=== PATIENT | female | born 1970 | race Caucasian/White ===

== ENCOUNTER 2016-08-05 09:33 | Outpatient (CLI) ==
[2013-03-26 13:17] VITALS: BMI 22.6
--- NOTE | 2016-08-05 11:00 | MAMMO ---
EXAM: Digital right diagnostic mammogram HISTORY: Right axillary soft tissue seen on previous screening mammogram COMPARISON: Screening mammogram 06/23/2016 and 03/15/2015 FINDINGS: XCCL, MLO and ML views of the breast were performed digitally and demonstrate heterogeneo usly dense breast density (50 - 75%). Breast density limits evaluation of subtle nodules. The right axillary soft tissue is not redemonstrated on any of the provided views. IMPRESSION: Right axillary soft tissue seen on prior examination is not redemonstrated on mammogram and is likely artifact/summation of shadows from prior exam. RECOMMENDATION: Return to annual screening mammogram BIRADS category II: Benign findings
== END 2016-08-05 09:34 | disposition home or self-care (01) ==
LOC: RAD 09:33
PROVIDERS: ATTEND Internal Medicine
DX: R92.8 Other abnormal and inconclusive findings on diagnostic imaging of breast (principal)

== ENCOUNTER 2017-03-18 10:19 | Outpatient (CLI) ==
[2013-03-26 13:17] VITALS: BMI 22.6
[2017-03-18 11:05] LABS: BILIRUBIN,URINE Negative (NEGATIVE); KETONES,URINE Negative (NEGATIVE); LEUKOCYTE ESTERASE ,URINE Negative (NEGATIVE); NITRITE,URINE Negative (NEGATIVE); PH,URINE 5.5 (5-9); PROTEIN,URINE Negative (NEGATIVE); URINE, BLOOD Trace-intact (NEGATIVE)
[2017-03-18 11:30] LABS: ADD URINE MICROSCOPIC YES
== END 2017-03-18 10:20 | disposition home or self-care (01) ==
LOC: LAB 10:19
PROVIDERS: ATTEND Internal Medicine
DX: R30.0 Dysuria (principal); N89.8 Other specified noninflammatory disorders of vagina
CPT/HCPCS: 81001; 87086; 87800

== ENCOUNTER 2017-07-28 11:02 | Outpatient (CLI) | payer OTHER ==
[2013-03-26 13:17] VITALS: BMI 22.6
--- NOTE | 2017-07-28 11:53 | MAMMO ---
EXAM: Bilateral digital screening mammogram (2-D and 3-D) History: Screening Comparison: Bilateral mammogram 06/23/2016 Findings: MLO and CC views of bilateral breasts demonstrate heterogeneously dense breast parenchyma which can obscure small lesions. CAD was reviewed by the radiologist. Tomosynthesis was performed. There are no dominant masses, no suspicious microcalcifications and no architectural distortions Impression: Stable negative mammogram. Recommend followup routine screening mammography in 1 year. BIRADS 1
--- NOTE | 2017-07-28 16:09 | MRI ---
EXAM: MRI bilateral lower leg without contrast. HISTORY: Leg pain. Bilateral ashraf pain radiating down to ankles. No lower extremity surgery reporte d. TECHNIQUE: Using a coil on a high field strength magnet multiplanar multisequence large field of vie w imaging obtained through the right and left tibia/fibula without intravenous gadolinium contrast. Note this constitutes incomplete MR evaluation of the bilateral knees and bilateral hind feet.. FINDINGS: I do not have prior plain film radiographs of the right or left tibia/fibula available for comparison at the time of this dictation. Bone marrow signal intensity of the right tibia/fibular shows no acute fracture or stress fracture, s tress fracture or discrete lytic or blastic lesion. Small focus of subchondral edema/remodeling over the lateral corner of the left talar dome. This measures approximate 8 mm. No loose/unstable fragment suspected. The muscle bulk of the anterior and posterior compartments of both lower extremities below the knee shows no focal atrophy or muscle fascial herniation. There is some minimal increased intramuscular T 2 signal intensity to the more distal right and left medial heads of the gastrocnemius. Some less ex tensive involvement of the more distal lateral heads of the gastrocnemius muscle. No deep fascial/de ep inter muscular fluid collections identified.. IMPRESSION: No acute fracture/stress fracture right or left tibia/fibula. Some minimal increased intramuscular T2 signal intensity along the more distal right and left medial heads of the gastrocnemius with less extensive involvement of the more distal right and left lateral heads of the gastrocnemius muscle.. This may reflect some low grade strain. Tiny osteochondral lesion lateral corner of the left talar dome.
== END 2017-07-28 11:03 | disposition home or self-care (01) ==
LOC: RAD 11:02
PROVIDERS: ATTEND Internal Medicine
DX: Z12.31 Encounter for screening mammogram for malignant neoplasm of breast (principal)
CPT/HCPCS: 77067

== ENCOUNTER 2017-08-20 11:00 | Outpatient (CLI) ==
[2013-03-26 13:17] VITALS: BMI 22.6
== END 2017-08-20 11:01 | disposition home or self-care (01) ==
LOC: LAB 11:00
PROVIDERS: ATTEND Internal Medicine
DX: K12.1 Other forms of stomatitis (principal)
CPT/HCPCS: 36415; 86695; 86696; 87252

== ENCOUNTER 2018-05-11 09:26 | Emergency (ER) | payer OTHER ==
[2018-05-11 09:37] VITALS: BP 141/80; TEMP 98.3; BMI 23.1
[2018-05-11] MEDS ORDERED: ROCEPHIN IM STA (10:12)
[2018-05-11] MEDS ORDERED: LIDOCAINE HCL 1% SDV IM STA (10:12)
[2018-05-11] MEDS ORDERED: ZOFRAN 4 MG/2 ML IM STA (10:12)
[2018-05-11] MEDS ORDERED: MORPHINE 2 MG/ML SYRINGE IM STA (10:12)
--- NOTE | 2018-05-11 10:15 | ED.PDOC ---
General ED Provider: Dr. THOMAS HERNANDEZ Chief Complaint: Tooth Problem Stated Complaint: dental abscess Time Seen by Physician: 09:30 (see photos, JACKIE AND ARSALAN PRESENT AT ALL TIMES ) Mode of Arrival: Walk-In Information Source: Patient Exam Limitations: No limitations Primary Care Provider: SIDRA KESY Nursing and Triage Documentation Reviewed and Agree: Yes Does patient meet sepsis criteria?: No System Inflammatory Response Syndrome: Not Applicable (see photos) Sepsis Protocol: For patient's 13 years and over: Temp is 96.8 and below OR 101 and greater Pulse >90 BPM Resp >20/minute Acutely Altered Mental Status Are patient's symptoms suggestive of a new infection, such as: -Pneumonia -Skin, Soft Tissue -Endocarditis -UTI -Bone, Joint Infection -Implantable Device -Acute Abdominal Infection -Wound Infection -Meningitis -Blood Stream Catheter Infection -Unknown EENT Complaint Exam - Dental/Oral Complaint/Exam Mechanism of Injury: No known trauma Onset/Duration: 3 days Symptoms Are: Still present Timing: Constant Initial Severity: Moderate Current Severity: Moderate Character: Reports: Aching, Throbbing Aggravating: Reports: None Alleviating: Reports: None Associated Signs and Symptoms: Reports: Swelling (jaw ). Denies: Discharge, Fever, Foul odor, Foul taste in mouth Related History: Reports: Similar episode Cardiac Risk Factors: Reports: None Dental/Oral Surgical History: Reports: None Tooth Findings: Present: Gross caries, Abcess Cervical Lymphadenopathy Present: No Facial Swelling Present: Yes (see photos) Bleeding Present: No Oropharynx Findings: Absent: Clots, Active bleeding Septal Hematoma: No Foreign Body Present: No Dysphagia Present: No Drooling Present: No Asymmetrical Tonsillar Swelling Present: No Uvula Midline: Yes Maylin-tonsillar Fluctuence: No Trismus Present: No Palatal Petechiae Present: No Scarlatinaform Rash Present: No Lesions: Absent: Lip, Gums, Tongue, Buccal Mucosa, Pharynx Exanthem: Absent: Lip, Gums, Tongue, Buccal Mucosa, Pharynx Vesicles: Absent: Lip, Gums, Tongue, Buccal Mucosa, Pharynx Teeth Picture: 1 - decay Differential Diagnoses: Dental Caries, Other (abscess) Review of Systems - Review Of Systems Constitutional: Reports: No symptoms Eyes: Reports: No symptoms Ears, Nose, Mouth, Throat: Reports: No symptoms Respiratory: Reports: No symptoms Cardiac: Reports: No symptoms GI: Reports: No symptoms : Reports: No symptoms Musculoskeletal: Reports: No symptoms Skin: Reports: No symptoms Neurological: Reports: No symptoms Endocrine: Reports: No symptoms Hematologic/Lymphatic: Reports: No symptoms All Other Systems: Reviewed and Negative Past Medical History - Past Medical History Previously Healthy: Yes Endocrine: Reports: None Cardiovascular: Reports: None Respiratory: Reports: None Hematological: Reports: None Gastrointestinal: Reports: None Genitourinary: Reports: None Neuro/Psych: Reports: None Musculoskeletal: Reports: None Cancer: Reports: None Last Menstrual Period: 2 weeks - Surgical History General Surgical History: Reports: None - Family History Family History: Reports: None - Social History Smoking Status: Never smoker Hx Substance Use: No Alcohol Screening: None Physical Exam - Physical Exam Appearance: Well-appearing, No pain distress, Well-nourished Eyes: COLLEEN, EOMI, Conjunctiva clear ENT: Ears normal, Nose normal, Oropharynx normal Respiratory: Airway patent, Breath sounds clear, Breath sounds equal, Respirations nonlabored Cardiovascular: RRR, Pulses normal, No rub, No murmur GI/: Soft, Nontender, No masses, Bowel sounds normal, No Organomegaly Musculoskeletal: Normal strength, ROM intact, No edema, No calf tenderness Skin: Warm, Dry, Normal color Neurological: Sensation intact, Motor intact, Reflexes intact, Cranial nerves intact, Alert, Oriented Psychiatric: Affect appropriate, Mood appropriate Critical Care Note - Critical Care Note Total Time (mins): 0 Course - Course Orders, Labs, Meds: Orders Category Date Time Status Ceftriaxone Sodium [Rocephin] MEDS 05/11/18 10:12 Stat 1 gm IM ONCE STA Lidocaine HCl/Pf [Lidocaine HCl 1% Sdv] MEDS 05/11/18 10:12 Stat 2.1 ml IM ONCE STA Morphine Sulfate [Morphine 2 mg/ml Syringe] MEDS 05/11/18 10:12 Stat 4 mg IM ONCE STA Ondansetron HCl/Pf [Zofran 4 mg/2 ml] MEDS 05/11/18 10:12 Stat 4 mg IM ONCE STA CT MAXILLOFACIAL W/O CONTRAST Stat RADS 05/11/18 10:13 Ordered Medications Generic Name Dose Route Start Last Admin Trade Name Shae PRN Reason Stop Dose Admin Ceftriaxone Sodium 1 gm 05/11/18 10:12 Rocephin IM 05/11/18 10:13 ONCE STA Lidocaine HCl 2.1 ml 05/11/18 10:12 Lidocaine Hcl 1% Sdv IM 05/11/18 10:13 ONCE STA Morphine Sulfate 4 mg 05/11/18 10:12 Morphine 2 Mg/Ml Syringe IM 05/11/18 10:13 ONCE STA Ondansetron HCl 4 mg 05/11/18 10:12 Zofran 4 Mg/2 Ml IM 05/11/18 10:13 ONCE STA Vital Signs: Temp Pulse Resp BP Pulse Ox 05/11/18 09:27 98.3 F 97 H 20 141/80 H 99 Departure - Departure Time of Disposition: 10:16 Disposition: HOME SELF-CARE Discharge Problem: Toothache, Dental abscess Instructions: Abscess (ED) Condition: Good Pt referred to PMD for follow-up: Yes IPMP verified?: No Additional Instructions: Please call your Family Physician as soon as possible to schedule a follow-up appointment.IF SWELLING IS MORE CANT OPEN EYES , FEVER , VISION RELATED ISSUES NOTED THESE ARE EMERGENCIES THAT YOU SHOULD SEEK HELP FOR IMMEDIATELY. OUT PATIENT ANTIBIOTICS ARE MUST BE DONE OUTLINED .EVEN WITH ALL THESE YOU MAY STILL HAVE INFECTION SPREAD PLEASE BE MINDFULL AND DO FOLLOW UP WITH YOU João Allergies/Adverse Reactions: Allergies doxycycline Adverse Reaction (Verified 05/11/18 09:37) Home Medications: Ambulatory Orders Frovatriptan Succinate [Frova] 2.5 mg PO BID 06/09/16 Disposition Discussed With: Patient
== END 2018-05-11 11:40 | disposition home or self-care (01) ==
LOC: ED 09:26
DX: K08.89 Other specified disorders of teeth and supporting structures (principal); K04.7 Periapical abscess without sinus; K02.7 Dental root caries
CPT/HCPCS: 96372; 99283

== ENCOUNTER 2018-05-12 13:36 | Outpatient (CLI) ==
[2018-05-11 09:37] VITALS: BMI 23.1
[2018-05-12 14:06] VITALS: BP 126/66; TEMP 98.2
[2018-05-12] MEDS ORDERED: LIDOCAINE HCL 1% SDV IM STA (14:10)
[2018-05-12] MEDS ORDERED: ROCEPHIN IM SCH (14:21)
[2018-05-13] MEDS ORDERED: ROCEPHIN IM SCH (09:00)
== END 2018-05-12 13:37 | disposition home or self-care (01) ==
LOC: OPMED 13:36
PROVIDERS: ATTEND Internal Medicine
DX: K04.7 Periapical abscess without sinus (principal)
CPT/HCPCS: 96372

== ENCOUNTER 2018-05-16 09:21 | Outpatient (CLI) ==
[2018-05-16 10:09] VITALS: BP 138/79; TEMP 98.2
[2018-05-16] MEDS: ROCEPHIN IM STA (10:10)
[2018-05-16] MEDS: LIDOCAINE HCL 1% SDV IM STA (10:10)
== END 2018-05-16 10:13 | disposition home or self-care (01) ==
LOC: OPMED 09:21
PROVIDERS: ATTEND Internal Medicine
DX: K04.7 Periapical abscess without sinus (principal)
CPT/HCPCS: 96372

== ENCOUNTER 2018-12-16 12:39 | Outpatient (CLI) ==
--- NOTE | 2018-12-16 16:21 | DI ---
EXAM: Two views of the chest. History: Bronchial asthma Findings: Heart size is normal. No focal consolidation. No appreciable pleural fluid and no pneumo thorax. No acute osseous abnormalities. Mild chronic compression deformity within the lower thoraci c spine. Impression: No acute cardiopulmonary process
== END 2018-12-16 12:40 | disposition home or self-care (01) ==
LOC: CAR 12:39
PROVIDERS: ATTEND Internal Medicine
DX: R06.02 Shortness of breath (principal); J45.909 Unspecified asthma, uncomplicated

== ENCOUNTER 2019-03-06 11:24 | Outpatient (CLI) | payer OTHER ==
--- NOTE | 2019-03-06 13:31 | MRI ---
EXAM: MRI cervical spine without contrast Date: 03/06/2019 Comparison: MRI cervical spine 03/13/2015 History: Neck pain TECHNIQUE: Routine MR images of the cervical spine were obtained without IV Gadolinium. FINDINGS: The craniocervical junction appears normal. The cervical spinal cord is normal in signal and morphology. No acute fracture. Vertebral bodies are normal in height and alignment. No signifi cant disc height narrowing. No worrisome marrow signal abnormality. C2-C3: No significant central spinal canal or neural foraminal stenosis. C3-C4: No significant central spinal canal or neural foraminal stenosis. C4-C5: There is bilateral uncovertebral hypertrophy without neural foramen stenosis. Mild diffuse di sc bulge. No significant central spinal canal stenosis. C5-C6: Mild diffuse disc bulge and bilateral uncovertebral hypertrophy. Severe right and moderate l eft neural foramen stenosis, which is unchanged. No significant central spinal canal stenosis. C6-C7: No significant central spinal canal or neural foramen stenosis. C7-T1: No significant central spinal canal or neural foramen stenosis. Impression: Stable severe right and moderate left neural foramen stenosis at C5-C6.
--- NOTE | 2019-03-06 15:12 | MRI ---
EXAM: MRI brain without contrast. Date: 03/06/2019 COMPARISON: None. HISTORY: Headache and neck pain TECHNIQUE: Routine MR images of the brain were obtained without IV Gadolinium FINDINGS: No intracranial mass, mass effect, hemorrhage, or abnormal extra-axial fluid collection. The ventricles and subarachnoid spaces are not enlarged. No acute infarct on diffusion weighted imag ing. No white matter signal abnormalities. No pituitary, pineal, or cerebellopontine angle lesion s een. The craniocervical junction appears normal. Visualized orbital structures are normal. Paranas al sinuses are clear. No fluid in the middle ear cavities or mastoid air cells. IMPRESSION: 1. No acute intracranial abnormality. 2. No evidence of white matter demyelination.
== END 2019-03-06 11:25 | disposition home or self-care (01) ==
LOC: RAD 11:24
PROVIDERS: ATTEND Psychiatry & Neurology Clinical Neurophysiology
DX: G43.719 Chronic migraine without aura, intractable, without status migrainosus (principal); M54.2 Cervicalgia